=== PATIENT | female | born 1985 | race Caucasian/White ===

== ENCOUNTER 2024-02-19 09:16 | Emergency (ER) | payer BC, SELFPAY ==
[2024-02-19 09:28] VITALS: BP 155/87
--- NOTE | 2024-02-19 09:42 | ED.GENMED ---
History of Present Illness
<Rodney Echols PA-C - Last Filed: 02/19/24 16:53>
General
Chief Complaint: Abdominal Pain
Source: patient
Time Seen by Provider: 02/19/24 09:35
Travel History
Have you had any contact with someone who has COVID-19?: No
Do you have any symptoms of coronavirus? Fever > 100 degrees, chills, cough, shortness of breath, sore throat, loss of taste or smell, muscle aches, or headache?: No
History of Present Illness
History of Present Illness:
38-year-old female presenting to the emergency department for evaluation of left-sided lower abdominal pain that began yesterday, gradual in onset, worsening throughout the day and into today accompanied with diarrhea and nausea with symptoms
feeling similar to previous episodes of diverticulosis and had required admission many years ago at [facility] for antibiotics. Patient denies any fevers but admits to feeling clammy. Did not take anything for symptoms prior to arrival. No
known sick contacts, recent travel or recent antibiotics. Surgical history was noted for previous cholecystectomy and C-sections. Social history otherwise noncontributory.
Past History
<Rodney Echols PA-C - Last Filed: 02/19/24 16:53>
Past History
ED Past Medical History: Psychiatric and Other (IBS)
ED Past Surgical History: Cholecystectomy, and Gynecological
Social History
Tobacco: Non-smoker
Alcohol: None
Drug: None
Personal:
Living: with family
Employment: Employed (Day care center)
Family History
Family History: Diabetes; Negative Early CAD or CAD
Review of Systems
<Rodney Echols PA-C - Last Filed: 02/19/24 16:53>
Review of Systems
All Other Systems: ROS reviewed and negative except as documented in HPI and ROS
Phy Exam
<Rodney Echols PA-C - Last Filed: 02/19/24 16:53>
Physical Exam
Physical Exam:
GENERAL: Alert , in no apparent distress but does appear quite uncomfortable
EYE: clear conjunctiva b/l
HEAD: NCAT
ENT: o/p clr, mmm.
CARDIAC: Regular rate and rhythm .
LUNGS: Clear breath sounds bilaterally, no acute respiratory distress, no wheezes/rales/rhonchi
ABDOMEN: Soft, tenderness around the periumbilical region and worse in the left lower quadrant, guarding with palpation in the left lower quadrant but no rebound tenderness, no cvat
NEUROLOGICAL: Alert and oriented
SKIN: Warm and dry, skin intact.
MUSCULOSKELETAL: well perfused.
PSYCH: Normal and appropriate interaction.
Scores
<Rodney Echols PA-C - Last Filed: 02/19/24 16:53>
Heart Failure Risk
Heart Failure Risk Score: Not Applicable
Heart Score for Chest Pain Patients
STEMI patient?: Not applicable
Withdrawal Assessment of Alcohol
Withdrawal Assessment Completed?: Not applicable
Course
<Rodney Echols PA-C - Last Filed: 02/19/24 16:53>
Orders/Labs/Results
Orders:
Orders
02/19/24 09:40
0.9% Sodium Chloride 1000 ml [Nss] 1,000 ml IV BOLUS
Morphine Sulfate 4 mg IV NOW STA
Ondansetron Injectable [Zofran] 4 mg IV NOW STA
02/19/24 09:41
CT Abd/Pel (IV only)-DH only Urgent
Comment:
Reason For Exam: LLQ pain, hx diverticulosis
Test Result ONCE
02/19/24 09:50
Complete Blood Count/With Diff Urgent
Comprehensive Metabolic Panel Urgent
HCG, Serum Qualitative Screen Urgent
Lipase Urgent
02/19/24 11:18
HYDROmorphone [Dilaudid] 0.5 mg IV NOW STA
02/19/24 12:49
HYDROmorphone [Dilaudid] 0.5 mg IV NOW STA
US Pelvis W Transvag Combined Urgent
Reason For Exam: left sided abd pain
02/19/24 16:38
Urinalysis Reflex To Culture Urgent
Date Specimen was Collected: 02/19/24
Time Specimen was Collected: 10:00
Urine Microscopic Reflex Cult Urgent
HYDROmorphone [Dilaudid] 0.5 mg IV NOW STA
Ondansetron Injectable [Zofran] 4 mg IV NOW STA
Abnormal Lab Results
02/19/24 02/19/24
09:50 16:38
WBC 12.5 H 10^3/uL
(4.8-10.8)
MCV 80.6 L fL
(81.0-99.0)
Abs Immat Gran (auto) 0.1 H 10^3/uL
(0-0.05)
Absolute Neuts (auto) 7.0 H 10^3/uL
(1.4-6.5)
Absolute Monos (auto) 0.7 H 10^3/uL
(0.1-0.6)
Absolute Eos (auto) 1.6 H 10^3/uL
(0-0.7)
Eosinophils % 13.1 H %
(0-6)
Glucose 102 H mg/dl
(70-99)
Ur Occult Blood Reflex Trace A
(Negative)
Urine Bacteria (Reflex) Few A
(Negative)
02/19/24 09:50
02/19/24 09:50
Vital Signs
Initial and Last Documented VS:
Initial Vital Signs
Temp Pulse Resp BP Pulse Ox
99.0 F 101 20 155/87 96
02/19/24 09:28 02/19/24 09:28 02/19/24 09:28 02/19/24 09:28 02/19/24 09:28
Last Documented Vital Signs
Temp Pulse Resp BP Pulse Ox
98.1 F 73 18 104/62 97
02/19/24 17:26 02/19/24 17:26 02/19/24 17:26 02/19/24 17:26 02/19/24 17:26
<Drew Montiel, DO - Last Filed: 02/19/24 10:28>
Orders/Labs/Results
Orders:
Orders
02/19/24 09:40
0.9% Sodium Chloride 1000 ml [Nss] 1,000 ml IV BOLUS
Morphine Sulfate 4 mg IV NOW STA
Ondansetron Injectable [Zofran] 4 mg IV NOW STA
02/19/24 09:41
CT Abd/Pel (IV only)-DH only Urgent
Comment:
Reason For Exam: LLQ pain, hx diverticulosis
Test Result ONCE
02/19/24 09:50
Complete Blood Count/With Diff Urgent
Comprehensive Metabolic Panel Urgent
HCG, Serum Qualitative Screen Urgent
Lipase Urgent
02/19/24 11:18
HYDROmorphone [Dilaudid] 0.5 mg IV NOW STA
02/19/24 12:49
HYDROmorphone [Dilaudid] 0.5 mg IV NOW STA
US Pelvis W Transvag Combined Urgent
Reason For Exam: left sided abd pain
02/19/24 16:38
Urinalysis Reflex To Culture Urgent
Date Specimen was Collected: 02/19/24
Time Specimen was Collected: 10:00
Urine Microscopic Reflex Cult Urgent
HYDROmorphone [Dilaudid] 0.5 mg IV NOW STA
Ondansetron Injectable [Zofran] 4 mg IV NOW STA
Abnormal Lab Results
02/19/24 02/19/24
09:50 16:38
WBC 12.5 H 10^3/uL
(4.8-10.8)
MCV 80.6 L fL
(81.0-99.0)
Abs Immat Gran (auto) 0.1 H 10^3/uL
(0-0.05)
Absolute Neuts (auto) 7.0 H 10^3/uL
(1.4-6.5)
Absolute Monos (auto) 0.7 H 10^3/uL
(0.1-0.6)
Absolute Eos (auto) 1.6 H 10^3/uL
(0-0.7)
Eosinophils % 13.1 H %
(0-6)
Glucose 102 H mg/dl
(70-99)
Ur Occult Blood Reflex Trace A
(Negative)
Urine Bacteria (Reflex) Few A
(Negative)
02/19/24 09:50
02/19/24 09:50
Vital Signs
Initial and Last Documented VS:
Initial Vital Signs
Temp Pulse Resp BP Pulse Ox
99.0 F 101 20 155/87 96
02/19/24 09:28 02/19/24 09:28 02/19/24 09:28 02/19/24 09:28 02/19/24 09:28
Last Documented Vital Signs
Temp Pulse Resp BP Pulse Ox
98.1 F 73 18 104/62 97
02/19/24 17:26 02/19/24 17:26 02/19/24 17:26 02/19/24 17:26 02/19/24 17:26
<Mehrdad Dominguez PA-C - Last Filed: 02/19/24 19:31>
Orders/Labs/Results
Orders:
Orders
02/19/24 09:40
0.9% Sodium Chloride 1000 ml [Nss] 1,000 ml IV BOLUS
Morphine Sulfate 4 mg IV NOW STA
Ondansetron Injectable [Zofran] 4 mg IV NOW STA
02/19/24 09:41
CT Abd/Pel (IV only)-DH only Urgent
Comment:
Reason For Exam: LLQ pain, hx diverticulosis
Test Result ONCE
02/19/24 09:50
Complete Blood Count/With Diff Urgent
Comprehensive Metabolic Panel Urgent
HCG, Serum Qualitative Screen Urgent
Lipase Urgent
02/19/24 11:18
HYDROmorphone [Dilaudid] 0.5 mg IV NOW STA
02/19/24 12:49
HYDROmorphone [Dilaudid] 0.5 mg IV NOW STA
US Pelvis W Transvag Combined Urgent
Reason For Exam: left sided abd pain
02/19/24 16:38
Urinalysis Reflex To Culture Urgent
Date Specimen was Collected: 02/19/24
Time Specimen was Collected: 10:00
Urine Microscopic Reflex Cult Urgent
HYDROmorphone [Dilaudid] 0.5 mg IV NOW STA
Ondansetron Injectable [Zofran] 4 mg IV NOW STA
Abnormal Lab Results
02/19/24 02/19/24
09:50 16:38
WBC 12.5 H 10^3/uL
(4.8-10.8)
MCV 80.6 L fL
(81.0-99.0)
Abs Immat Gran (auto) 0.1 H 10^3/uL
(0-0.05)
Absolute Neuts (auto) 7.0 H 10^3/uL
(1.4-6.5)
Absolute Monos (auto) 0.7 H 10^3/uL
(0.1-0.6)
Absolute Eos (auto) 1.6 H 10^3/uL
(0-0.7)
Eosinophils % 13.1 H %
(0-6)
Glucose 102 H mg/dl
(70-99)
Ur Occult Blood Reflex Trace A
(Negative)
Urine Bacteria (Reflex) Few A
(Negative)
02/19/24 09:50
02/19/24 09:50
Vital Signs
Initial and Last Documented VS:
Initial Vital Signs
Temp Pulse Resp BP Pulse Ox
99.0 F 101 20 155/87 96
02/19/24 09:28 02/19/24 09:28 02/19/24 09:28 02/19/24 09:28 02/19/24 09:28
Last Documented Vital Signs
Temp Pulse Resp BP Pulse Ox
98.1 F 73 18 104/62 97
02/19/24 17:26 02/19/24 17:26 02/19/24 17:26 02/19/24 17:26 02/19/24 17:26
<Rodney Echols PA-C - Last Filed: 02/19/24 16:53>
MDM/Problems Addressed
Differential Diagnosis Includes:
Diverticulitis, ovarian cyst, GERD/gastritis, peptic ulcer disease, pancreatitis
MDM/Problems Addressed:
38-year-old female presenting the emergency department for quadrant abdominal pain, noted history for diverticular she had some type of infection many years ago that required admission at [facility] with IV antibiotics. She is quite
uncomfortable on exam and this is exacerbated with any palpation. Will check labs, CT imaging. Treatment with morphine and Zofran. Reassessment following.
<Rodney Echols PA-C - Last Filed: 02/19/24 16:53>
*Radiology
Radiology exam reviewed: radiology read reviewed
*Pulse Oximetry
Patient hypoxic: no
Data Reviewed
Review of Other/Old Records Reveals: Labs
<Mehrdad Dominguez PA-C - Last Filed: 02/19/24 19:31>
*Critical Care Note
Total Time (30-74mins, 75-104mins- exclusive of procedures): Not Applicable
<Rodney Echols PA-C - Last Filed: 02/19/24 16:53>
Comment
Comment:
11:18 AM: Patient stating pain is initially improved however starting to return. Half milligram of Dilaudid ordered for pain control. CT noted to be without any evidence for acute pathologies. Will attempt to control patient's pain better and
hope to discharge home afterwards
<Mehrdad Dominguez PA-C - Last Filed: 02/19/24 19:31>
Update Note
Update Note:
02/19/2024 1810 PM: Patient reassessed, still having pain and nausea. Workup grossly benign. Will discharge with prescriptions for pain medication and antiemetics
ED Attending Note
<Rodney Echols PA-C - Last Filed: 02/19/24 16:53>
-
Portions of this chart may have been created with voice recognition software.� Occasional wrong word or��sound alike� substitutions may have occurred due to the inherent limitations of voice recognition software.
<Drew Montiel DO - Last Filed: 02/19/24 10:28>
ED Attending Note
Patient seen and examined by attending physician: Yes
Discharge Plan
Departure
Patient Disposition: Home (Routine Discharge)
Date of Disposition: 02/19/24
Time of Disposition: 18:10
Patient with high blood pressure during this ER visit?: Yes
Discharge Problem:
Abdominal pain
Instructions: Abdominal Pain
Prescriptions:
New
oxycodone-acetaminophen [Percocet] 5-325 mg tablet
1 tab PO Q6HPRN PRN (Reason: pain) Qty: 10 0RF
ondansetron 4 mg tablet,disintegrating
4 mg PO TIDPRN PRN (Reason: nausea/vomiting) Qty: 10 0RF
No Action
omeprazole 10 mg Capsule,Delayed Release(Dr/Ec)
10 mg PO DAILYPRN PRN (Reason: reflux)
Referrals:
Alton Newton, DO [Family Provider] -
Interventions
Interventions:
*Risk Screen - Suicide Last Done: 02/19/24 13:09
*General Assessment Last Done: 02/19/24 13:09
*Neglect/Abuse Screening Last Done: 02/19/24 13:09
ED- Fall Risk Assessment Last Done: 02/19/24 13:09
*ED COVID-19 Vaccine History Last Done: 02/19/24 09:28
*Nursing Disposition Last Done: 02/19/24 18:43
GZ-Zlzzxo-Kncvumxzko Assessment Last Done: 02/19/24 13:09
Discharge Date and Time
Discharge Date/Time: 02/19/24 18:45
Print Language: YEMENI
[2024-02-19 09:59] LABS: % Basophils 0.3 % (0-2); % Eosinophils 13.1 % (0-6); % Immature Granulocytes 0.5 % (0-0.5); % Lymphocytes 24.7 % (20.5-51.1); % Monocytes 5.2 % (1.7-9.3); % Neutrophils 56.2 % (42.2-75.2); Absolute Eosinophils 1.6 10^3/uL (0-0.7); Absolute Immature Granulocytes 0.1 10^3/uL (0-0.05); Absolute Lymphocytes 3.1 10^3/uL (1.2-3.4); Absolute Monocytes 0.7 10^3/uL (0.1-0.6); Hematocrit 37.3 % (37.0-47.0); Hemoglobin 12.8 g/dL (12.0-16.0); Mean Corp Hgb Conc. 34.3 g/dL (33.0-37.0); Mean Corpuscular Hgb 27.6 pg (27.0-31.0); Mean Corpuscular Volume 80.6 fL (81.0-99.0); Nucleated Red Blood Cells % 0 %; Red Blood Cell Count 4.63 10^6/uL (4.20-5.40); Red Cell Dist. Width 14.1 % (11.5-14.5); White Blood Cell Count 12.5 10^3/uL (4.8-10.8)
[2024-02-19] MEDS: NSS 1000 IV (10:01)
[2024-02-19] MEDS: ZOFRAN 4 MG IV ×2 (10:01→16:41)
[2024-02-19] MEDS: MORPHINE SULFATE 4 MG IV (10:01)
[2024-02-19 10:09] LABS: HCG, Serum Qualitative Screen Negative
[2024-02-19 10:12] LABS: ALT (SGPT) 34 U/L (0-35); AST (SGOT) 27 U/L (14-36); Albumin 4.3 g/dl (3.5-5.0); Alkaline Phosphatase 85 U/L (38-126); Blood Urea Nitrogen 14 mg/dl (7-17); Calcium 9.3 mg/dl (8.4-10.2); Carbon Dioxide 23 mmol/L (22-30); Chloride 105 mmol/L (98-107); Glucose 102 mg/dl (70-99); Lipase 88 U/L (23-300); Potassium 4.1 mmol/L (3.5-5.1); Sodium 137 mmol/L (135-145); Total Bilirubin 0.4 mg/dl (0.2-1.3); Total Protein 7.6 g/dl (6.3-8.2); eGFR > 60.00
[2024-02-19] MEDS: DILAUDID 0.5 MG IV ×3 (11:28→16:41)
[2024-02-19 16:54] LABS: Urine Albumin Trace (Neg - Trace); Urine Bilirubin Negative (Negative); Urine Character Clear (Clear); Urine Color Yellow; Urine Glucose Negative (Negative); Urine Ketone Negative (Negative); Urine Leukocyte Negative (Negative); Urine Nitrite Negative (Negative); Urine Occult Blood Trace (Negative); Urine Specific Gravity 1.015 (<1.030); Urine Urobilinogen Negative (Neg - 1+)
[2024-02-19 17:01] LABS: Urine Bacteria Few (Negative); Urine Red Blood Cell 0-2 /HPF (0-2); Urine White Cell 0-2 /HPF (0-5)
[2024-02-19 17:26] VITALS: BP 104/62
[2024-02-19 18:42] VITALS: BMI 56.8
== END 2024-02-19 18:45 | disposition home or self-care (01) ==
LOC: EMR 09:16
PROVIDERS: Physician Assistant Medical; EMERGENCY PHYSICIAN Emergency Medicine; FAMILY PHYSICIAN Family Medicine
DX: R10.32 Left lower quadrant pain (principal); K58.0 Irritable bowel syndrome with diarrhea; Z83.3 Family history of diabetes mellitus; Z90.49 Acquired absence of other specified parts of digestive tract
CPT/HCPCS: 99284; 96374; 96375; 96376; 74177; 76830; 76856; 80053; 81003; 81015; 83690; 84703; 85025; Q9967

== ENCOUNTER 2024-04-24 00:34 | Emergency (ER) | payer BC, SELFPAY ==
[2024-04-24 00:35] VITALS: BP 156/93
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
[2024-04-24 01:43] LABS: % Basophils 0.9 % (0-2); % Eosinophils 4.9 % (0-6); % Immature Granulocytes 0.3 % (0-0.5); % Lymphocytes 30.8 % (20.5-51.1); % Monocytes 6.5 % (1.7-9.3); % Neutrophils 56.6 % (42.2-75.2); Absolute Basophils 0.1 10^3/uL (0-0.2); Absolute Eosinophils 0.5 10^3/uL (0-0.7); Absolute Lymphocytes 3.2 10^3/uL (1.2-3.4); Absolute Monocytes 0.7 10^3/uL (0.1-0.6); Absolute Neutrophils 5.8 10^3/uL (1.4-6.5); Hematocrit 36.1 % (37.0-47.0); Hemoglobin 12.5 g/dL (12.0-16.0); Mean Corp Hgb Conc. 34.6 g/dL (33.0-37.0); Mean Corpuscular Hgb 27.2 pg (27.0-31.0); Mean Corpuscular Volume 78.5 fL (81.0-99.0); Mean Platelet Volume 10.7 fL (7.4-10.4); Nucleated Red Blood Cells % 0 %; Platelet Count 366 10^3/uL (130-400); Red Cell Dist. Width 13.9 % (11.5-14.5); White Blood Cell Count 10.3 10^3/uL (4.8-10.8)
[2024-04-24] MEDS: NSS 1000 IV (01:46)
[2024-04-24] MEDS: BENADRYL 25 MG IV (01:47)
[2024-04-24] MEDS: COMPAZINE 10 MG IV (01:48)
[2024-04-24 01:55] LABS: HCG, Serum Qualitative Screen Negative
[2024-04-24 01:57] LABS: ALT (SGPT) 29 U/L (0-35); AST (SGOT) 29 U/L (14-36); Albumin 4.5 g/dl (3.5-5.0); Alkaline Phosphatase 80 U/L (38-126); Blood Urea Nitrogen 17 mg/dl (7-17); Calcium 9.9 mg/dl (8.4-10.2); Carbon Dioxide 28 mmol/L (22-30); Chloride 100 mmol/L (98-107); Glucose 103 mg/dl (70-99); Potassium 3.9 mmol/L (3.5-5.1); Sodium 135 mmol/L (135-145); Total Bilirubin 0.5 mg/dl (0.2-1.3); Total Protein 7.4 g/dl (6.3-8.2); eGFR > 60.00
[2024-04-24 02:09] LABS: Troponin I < 0.012 ng/ml
[2024-04-24] MEDS: TORADOL 30 MG IV (03:02)
[2024-04-24 03:51] LABS: Erythrocyte Sed Rate 1 mm/hour (0-20)
[2024-04-24] MEDS: DECADRON 10 MG IV (05:58)
[2024-04-24 06:08] VITALS: BP 119/60
== END 2024-04-24 06:09 | disposition home or self-care (01) ==
LOC: EMR 00:34
PROVIDERS: EMERGENCY PHYSICIAN Emergency Medicine; FAMILY PHYSICIAN Family Medicine
DX: G43.109 Migraine with aura, not intractable, without status migrainosus (principal); R20.2 Paresthesia of skin; K58.9 Irritable bowel syndrome, unspecified; F41.9 Anxiety disorder, unspecified; F32.A Depression, unspecified; K57.90 Diverticulosis of intestine, part unspecified, without perforation or abscess without bleeding; Z73.3 Stress, not elsewhere classified; Z90.49 Acquired absence of other specified parts of digestive tract; Z86.16 Personal history of COVID-19; Z87.891 Personal history of nicotine dependence; Z91.040 Latex allergy status; Z88.8 Allergy status to other drugs, medicaments and biological substances; Z91.048 Other nonmedicinal substance allergy status
CPT/HCPCS: 99284; 96374; 96375 ×3; 96361; 70450; 80053; 84484; 84703; 85025; 85652; 86140; 93005

== ENCOUNTER 2024-10-16 23:29 | Emergency (ER) | payer SELFPAY ==
[2024-10-16 23:47] VITALS: BP 139/100
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
[2024-10-17 00:41] VITALS: BP 137/86
== END 2024-10-17 01:00 | disposition home or self-care (01) ==
LOC: EMR 23:29
PROVIDERS: EMERGENCY PHYSICIAN Emergency Medicine; FAMILY PHYSICIAN Family Medicine
DX: S00.83XA Contusion of other part of head, initial encounter (principal); Y04.2XXA Assault by strike against or bumped into by another person, initial encounter; Y99.0 Civilian activity done for income or pay
CPT/HCPCS: 99282

== ENCOUNTER 2025-08-22 15:34 | Emergency (ER) | payer BC, SELFPAY ==
[2025-08-22 15:36] VITALS: BP 140/103
--- NOTE | 2025-08-22 15:51 | ED.GENMED ---
History of Present Illness
General
Chief Complaint: Abdominal Symptoms
Source: patient
Exam Limitations: none
Time Seen by Provider: 08/22/25 15:43
Nursing documentation reviewed up to this point in time: agreed with
History of Present Illness
History of Present Illness:
Patient to the emergency department with complaint of lower abdominal pain, nausea, vomiting, diarrhea. Symptoms started earlier this week. She reported feeling feverish although she did not take her temp at home. She also reported chills.
States symptoms started to improve after approximately 4 days. But then returned again early this a.m. She states the pain in her abdomen is worsening. History of IBS but states her symptoms are not similar to her IBS symptoms. Brought self to
the emergency department for evaluation.
Past History
Past History
ED Past Medical History: Psychiatric (Anxiety/depression) and Other (IBS, migraine headaches)
ED Past Surgical History: Cholecystectomy, and Gynecological
Social History
Tobacco: Non-smoker
Alcohol: None
Drug: None
Personal:
Living: with family
Employment: Employed ([employer])
Family History
Family History: Diabetes; Negative Early CAD or CAD
Review of Systems
Review of Systems
Allergies reviewed?: Yes
All Other Systems: ROS reviewed and negative except as documented in HPI and ROS
Constitutional: Reports fatigue and chills
EENT: Reports no symptoms
Respiratory: Reports no symptoms
Cardiac: Reports no symptoms
ABD/GI: Reports abdominal pain (She complains of severe left lower quadrant pain, however on palpation pain is diffuse), nausea, vomiting, diarrhea and anorexia
: Reports no symptoms
Musculoskeletal: Reports no symptoms
Skin: Reports no symptoms
Neurological: Reports no symptoms
Psychiatric: Reports no symptoms
Phy Exam
General Physical Exam
General Presentation: moderate distress
General age: appears stated age
General Skin: warm and dry
General Habitus: normal
General Mental: alert
General Hydration: appears well hydrated
Cardiovascular Exam
Cardiovascular Exam: regular rate/rhythm
Pulmonary Exam
Pulmonary Exam: lungs clear and no respiratory distress
Gastrointestinal Exam
Gastrointestinal Exam: normal bowel sounds, soft, no organomegaly, no pulsatile mass, non distended and no cva tenderness
Palpation: generalized: Moderate tenderness
Musculoskeletal Exam
Musculoskeletal Exam: full ROM and neuro vasc intact
Skin Exam
Skin Exam: normal color, warm/dry and no rash
Psychiatric Exam
Psychiatric Exam: normal mood/affect
Course
Orders/Labs/Results
Orders:
Orders
08/22/25 15:45
Test Result ONCE
08/22/25 15:50
0.9% Sodium Chloride 1000 ml [Nss] 1,000 ml IV BOLUS
HYDROmorphone [Dilaudid] 0.5 mg IV NOW STA
Ondansetron Injectable [Zofran] 4 mg IV NOW STA
08/22/25 15:51
CT Abd/pelvis W Iv Cont Urgent
Comment:
Reason For Exam: diffuse abd. pain, vomiting
Complete Blood Count/With Diff Urgent
Comprehensive Metabolic Panel Urgent
HCG, Serum Qualitative Screen Urgent
Lipase Urgent
Urinalysis Reflex To Culture Urgent
Date Specimen was Collected: 08/22/25
Time Specimen was Collected: 15:46
Urine Microscopic Reflex Cult Urgent
Urine Culture Urgent
PATIENCE Source: U
Specimen Description:
Date Specimen was Collected: 08/22/25
Time Specimen was Collected: 15:46
08/22/25 17:18
HYDROmorphone [Dilaudid] 0.5 mg IV NOW STA
08/22/25 18:56
HYDROmorphone [Dilaudid] 0.5 mg IV NOW STA
Ondansetron Injectable [Zofran] 4 mg IV NOW STA
08/22/25 19:30
Furosemide [Lasix] 20 mg IV NOW STA
Abnormal Lab Results
08/22/25
15:51
WBC 12.3 H 10^3/uL
(4.8-10.8)
Hct 36.0 L %
(37.0-47.0)
MPV 10.9 H fL
(7.4-10.4)
Absolute Neuts (auto) 9.0 H 10^3/uL
(1.4-6.5)
Absolute Monos (auto) 0.7 H 10^3/uL
(0.1-0.6)
Lymphocytes % 17.2 L %
(20.5-51.1)
Sodium 133 L mmol/L
(135-145)
Glucose 120 H mg/dl
(70-99)
Ur Occult Blood Reflex 1+ A
(Negative)
Urine Bacteria (Reflex) Moderate A
(Negative)
Urine Albumin (Reflex) 2+ A
(Neg - Trace)
08/22/25 15:51
08/22/25 15:51
Vital Signs
Initial and Last Documented VS:
Initial Vital Signs
Temp Pulse Resp BP Pulse Ox
97.8 F 103 16 140/103 98
08/22/25 15:36 08/22/25 15:36 08/22/25 15:36 08/22/25 15:36 08/22/25 15:36
Last Documented Vital Signs
Temp Pulse Resp BP Pulse Ox
97.8 F 103 16 119/78 97
08/22/25 15:36 08/22/25 15:36 08/22/25 15:36 08/22/25 17:00 08/22/25 18:15
*Pulse Oximetry
SaO2: 98
Oxygen Mode of Delivery: Room air
Patient hypoxic: no
*Critical Care Note
Total Time (30-74mins, 75-104mins- exclusive of procedures): Not Applicable
Update Note
Update Note:
Patient to the emergency department for evaluation of left lower quadrant abdominal pain. She reports vomiting and diarrhea. Symptoms started this morning. Labs reviewed, WBC 12.3. Sodium 133 UA negative for UTI. Vital signs are stable she
remains afebrile. CT of abdomen and pelvis completed. No concerning findings, no findings to explain her symptoms. Will discharge home, she will follow-up with her family doctor. She was given instructions on signs and symptoms to return to the
emergency department and she is agreeable to this plan.
ED Attending Note
-
Portions of this chart may have been created with voice recognition software.� Occasional wrong word or��sound alike� substitutions may have occurred due to the inherent limitations of voice recognition software.
Discharge Plan
Departure
Patient Disposition: Home (Routine Discharge)
Date of Disposition: 08/22/25
Time of Disposition: :22
Patient with high blood pressure during this ER visit?: No
Condition: Good
Covid-19: Not Applicable
Discharge Problem:
Abdominal pain
Instructions: Abdominal Pain
Prescriptions:
New
hydrocodone-acetaminophen 5-325 mg tablet
1 tab PO Q4H PRN (Reason: Pain) Qty: 20 0RF
ondansetron 4 mg tablet,disintegrating
4 mg PO TID PRN (Reason: nausea/vomiting) 4 Days Qty: 12 0RF
No Action
omeprazole 10 mg Capsule,Delayed Release(Dr/Ec)
10 mg PO DAILYPRN PRN (Reason: reflux)
oxycodone-acetaminophen [Percocet] 5-325 mg tablet
1 tab PO Q6HPRN PRN (Reason: pain) Qty: 10 0RF
ondansetron 4 mg tablet,disintegrating
4 mg PO TIDPRN PRN (Reason: nausea/vomiting) Qty: 10 0RF
Referrals:
Alton Newton DO [Family Provider, Family Practice] - Follow up in 2-3 days
Lashonda Luna MD [Active, Gastroenterology] - Call in 1-3 days for appt
Stand Alone Forms: Return to Work
Activity Restrictions/Additional Instructions:
Return to the emergency department immediately for any changes in/worsening of your symptoms.
Interventions
Interventions:
*Risk Screen - Suicide Last Done: 08/22/25 15:36
*General Assessment Last Done: 08/22/25 15:52
*Neglect/Abuse Screening Last Done: 08/22/25 15:36
*ED- Fall Risk Assessment Last Done: 08/22/25 15:52
*ED COVID-19 Vaccine History Last Done: 08/22/25 15:52
*ED Influenza Vaccine History Last Done: 08/22/25 15:52
*Nursing Disposition Last Done: 08/22/25 20:01
[facility] Assessment Last Done: 08/22/25 15:52
Discharge Date and Time
Discharge Date/Time: 08/22/25 20:01
Print Language: SINHALA
[2025-08-22 16:07] VITALS: BP 94/53
[2025-08-22 16:08] LABS: Hematocrit 36.0 % (37.0-47.0); Hemoglobin 12.2 g/dL (12.0-16.0); Mean Corp Hgb Conc. 33.9 g/dL (33.0-37.0); Mean Corpuscular Volume 81.3 fL (81.0-99.0); Nucleated Red Blood Cells % 0 %; Platelet Count 343 10^3/uL (130-400); Red Cell Dist. Width 13.7 % (11.5-14.5)
[2025-08-22] MEDS: ZOFRAN 4 MG IV ×2 (16:11→19:05)
[2025-08-22] MEDS: DILAUDID 0.5 MG IV ×3 (16:11→19:05)
[2025-08-22] MEDS: NSS 1000 IV (16:11)
[2025-08-22 16:20] LABS: HCG, Serum Qualitative Screen Negative
[2025-08-22 16:44] LABS: ALT (SGPT) 21 U/L (0-35); AST (SGOT) 25 U/L (14-36); Albumin 4.1 g/dl (3.5-5.0); Alkaline Phosphatase 57 U/L (38-126); Blood Urea Nitrogen 13 mg/dl (7-17); Calcium 9.1 mg/dl (8.4-10.2); Carbon Dioxide 22 mmol/L (22-30); Chloride 105 mmol/L (98-107); Glucose 120 mg/dl (70-99); Lipase 61 U/L (23-300); Potassium 4.5 mmol/L (3.5-5.1); Sodium 133 mmol/L (135-145); Total Protein 7.5 g/dl (6.3-8.2); eGFR > 60.00
[2025-08-22 17:00] VITALS: BP 119/78
[2025-08-22 17:50] LABS: Urine Character Clear (Clear)
[2025-08-22 18:07] LABS: Urine Squamous Cell >30 /LPF (Few)
[2025-08-22 18:08] LABS: Urine Red Blood Cell 0-2 /HPF (0-2); Urine White Cell 0-2 /HPF (0-5)
== END 2025-08-22 20:01 | disposition home or self-care (01) ==
LOC: EMR 15:34
PROVIDERS: Nurse Practitioner; EMERGENCY PHYSICIAN Emergency Medicine; FAMILY PHYSICIAN Family Medicine
DX: R10.32 Left lower quadrant pain (principal); R11.2 Nausea with vomiting, unspecified; R19.7 Diarrhea, unspecified; K58.9 Irritable bowel syndrome, unspecified; Z90.49 Acquired absence of other specified parts of digestive tract
CPT/HCPCS: 96374; 96375; 96361; 99284; 96376; 74177; 80053; 81003; 81015; 83690; 84703; 85025; 87086; Q9967